=== PATIENT | female | born 1975 | race Two or more races ===

== ENCOUNTER 2018-07-14 06:06 | Day surgery (SDC) | payer OTHER ==
[2018-07-14] MEDS ORDERED: PROPOFOL 20 ML (07:19)
[2018-07-14] MEDS ORDERED: MIDAZOLAM 1 MG/ML 2 ML INJ (07:19)
[2018-07-14] MEDS ORDERED: LIDOCAINE 1% (MDV) 20 ML INJ (07:19)
[2018-07-14] MEDS ORDERED: ONDANSETRON 4 MG INJ (07:27)
[2018-07-14] MEDS ORDERED: CEFAZOLIN 1 GM INJ (07:27)
[2018-07-14] MEDS ORDERED: DIPHENHYDRAMINE 50 MG INJ IV (07:30)
[2018-07-14] MEDS ORDERED: HYDROmorphONE 1 MG/5 ML IV SYRINGE IV (07:30)
[2018-07-14] MEDS ORDERED: FENTAnyl 50 MCG/ML VIAL (07:38)
[2018-07-14] MEDS ORDERED: OXYTOCIN 10 UNIT INJ (07:45)
[2018-07-14] MEDS ORDERED: SILVER NITRATE SWAB (07:50)
[2018-07-14] MEDS: MEPERIDINE 25 MG INJ IV (08:15)
[2018-07-14] MEDS: ONDANSETRON 4 MG INJ IV (08:15)
[2018-07-14] MEDS: HYDROmorphONE 1 MG/5 ML IV SYRINGE IV ×2 (08:27→08:40)
[2018-07-14] MEDS: KETOROLAC 30 MG INJ IM (08:38)
== END 2018-07-14 10:18 | disposition home or self-care (01) ==
LOC: SDS 06:06
DX: T83.89XA Other specified complication of genitourinary prosthetic devices, implants and grafts, initial encounter (principal); Y76.8 Miscellaneous obstetric and gynecological devices associated with adverse incidents, not elsewhere classified; Y83.8 Other surgical procedures as the cause of abnormal reaction of the patient, or of later complication, without mention of misadventure at the time of the procedure; D25.9 Leiomyoma of uterus, unspecified
CPT/HCPCS: 58301; 84703; 88300; 88305; 93005